=== PATIENT | male | born 1995 | race African-American/Black ===

== ENCOUNTER 2023-02-22 11:25 | Emergency (ER) | payer BC, OTHER ==
[2023-02-22] MEDS ORDERED: Sodium Chloride 0.9% 10 ML Syringe FLUSH PRN (11:41)
[2023-02-22] MEDS ORDERED: LORazepam 2 MG/ML SDV IVPUSH ONE (11:41)
[2023-02-22] MEDS ORDERED: Sodium Chloride 0.9% 1,000 ML IV SCH (11:45)
[2023-02-22 11:57] LABS: BASOPHILS ABSOLUTE AUTO 0.1 x10-3/uL (0.0-0.3); BASOPHILS PERCENT AUTO 0.6 % (0.3-3.8); EOSINOPHILS ABSOLUTE AUTO 0.1 x10-3/uL (0.0-0.6); EOSINOPHILS PERCENT AUTO 0.6 % (0.1-6.8); HEMATOCRIT 44.3 % (38.3-50.1); HEMOGLOBIN 15.1 g/dL (12.9-17.7); LYMPHOCYTES ABSOLUTE AUTO 3.4 x10-3/uL (0.5-4.5); LYMPHOCYTES PERCENT AUTO 38.2 % (15.8-45.3); MEAN CORPUSCULAR HEMOGLOBIN 28.8 pg (27.0-33.3); MEAN CORPUSCULAR HGB CONC 34.1 g/dL (28.7-35.3); MEAN CORPUSCULAR VOLUME 84.3 fL (80.8-98.7); MONOCYTES ABSOLUTE AUTO 0.6 x10-3/uL (0.0-1.2); MONOCYTES PERCENT AUTO 6.2 % (5.5-15.2); NEUTROPHILS ABSOLUTE AUTO 4.8 x10-3/uL (1.7-6.9); NEUTROPHILS PERCENT AUTO 54.4 % (40.3-71.8); PLATELET COUNT,PLT 200 x10(3)uL (117-477); RED BLOOD CELL COUNT 5.25 x10(6)uL (3.90-5.90); RED CELL DISTRIBUTION WIDTH 13.3 % (12.4-15.0); WHITE BLOOD CELL COUNT,WBC 8.9 x10-3/uL (3.2-10.1)
[2023-02-22 12:01] LABS: BLOOD UREA NITROGEN,BUN 8 mg/dL (7-18); CALCIUM 9.8 mg/dL (8.6-10.2); CARBON DIOXIDE,CO2 22 mmol/L (21-32); CHLORIDE,CL 105 mmol/L (100-110); CREATININE 1.6 mg/dL (0.70-1.30); ESTIMATED GFR 61 mL/min (>60); GLUCOSE RANDOM 111 mg/dL (80-116); SODIUM,NA 141 mmol/L (135-145)
== END 2023-02-22 13:00 | disposition home or self-care (01) ==
LOC: FB.ED 11:25
DX: F41.0 Panic disorder [episodic paroxysmal anxiety] (principal); E86.0 Dehydration; E87.6 Hypokalemia; N17.9 Acute kidney failure, unspecified
CPT/HCPCS: 36415; 80048; 85025; 93005; 93010; 96361; 96374; 99283; 99285; J2060; J3490; J7030